=== PATIENT | female | born 1950 | race Caucasian/White ===

== ENCOUNTER → 2016-08-28 | Outpatient (CLI) | payer MEDICARE, OTHER ==
[2016-08-28 15:30] LABS: INR 1.66 (0.9-1.15); Prothrombin Time 17.1 sec (9.37-12.3)
== END | disposition home or self-care (01) ==
LOC: LAB 14:52
DX: D68.9 Coagulation defect, unspecified (principal)
CPT/HCPCS: 36415; 85610